=== PATIENT | male | born 1970 | race Caucasian/White ===

== ENCOUNTER → 2020-10-21 | Outpatient (CLI) | payer BC | LOC: KOH-I 10-20 09:30 | DX: G47.00 Insomnia, unspecified (principal); R41.82 Altered mental status, unspecified; R53.83 Other fatigue; R51.9 Headache, unspecified | CPT/HCPCS: 70450 ==

== ENCOUNTER 2021-05-22 09:31 | Emergency (ER) | payer BC ==
[2021-05-22 10:13] LABS: HEMOGLOBIN 16.5 gm/dl (14.0-17.5); RED BLOOD COUNT 5.11 M/UL (4.20-5.50); WHITE BLOOD COUNT 4.8 K/UL (4.5-11.0)
[2021-05-22 10:32] LABS: BUN/CREATININE RATIO 10 (0-10)
[2021-05-22] MEDS ORDERED: IBUPROFEN600 MG PO (12:19)
[2021-05-22] MEDS ORDERED: CYCLOBENZAPRINE10 MG PO (12:41)
== END 2021-05-22 13:09 | disposition home or self-care (01) ==
LOC: ER1 09:31
PROVIDERS: Emergency Medicine
DX: R10.9 Unspecified abdominal pain (principal); K21.9 Gastro-esophageal reflux disease without esophagitis; I10 Essential (primary) hypertension; Z87.442 Personal history of urinary calculi
CPT/HCPCS: 80053; 81001; 85025; 85652; 86140; 96374; 96375; 99284; J2270; J2405

== ENCOUNTER 2021-08-28 20:15 | Emergency (ER) | payer BC ==
[~2021-08-28 20:15] MED LIST: CYCLOBENZAPRINE10 MG PO; IBUPROFEN600 MG PO
[2021-08-28 21:11] LABS: HEMOGLOBIN 16.6 gm/dl (14.0-17.5); RED BLOOD COUNT 5.11 M/UL (4.20-5.50); WHITE BLOOD COUNT 6.2 K/UL (4.5-11.0)
[2021-08-28 22:27] LABS: BUN/CREATININE RATIO 7 (0-10)
== END 2021-08-28 21:55 | disposition home or self-care (01) ==
LOC: ER1 20:15
PROVIDERS: Family Medicine
DX: F10.129 Alcohol abuse with intoxication, unspecified (principal); I10 Essential (primary) hypertension
CPT/HCPCS: 70450; 71045; 80053; 80307; 82550; 82553; 83874; 84484; 85025; 85610; 93005; 99285; G0480; J7030